=== PATIENT | male | born 1935 | race Caucasian/White ===

== ENCOUNTER 2018-02-06 08:31 | Outpatient (CLI) | payer MEDICARE, BC ==
--- NOTE | 2018-02-06 11:14 | CT ---
NONCONTRAST CT ABDOMEN AND PELVIS: Date: 02/06/18 HISTORY: Abnormality identified on x-ray. Irregular and coarse appearing calcifications upper quadrants of the abdomen bilaterally noted on views of lumbar spine. COMPARISON: Views of lumbar spine on 01/22/18. FINDINGS: The lung bases are clear. Vascular calcifications are seen in the abdominal aorta and involving the iliac arteries. There are coarse calcifications seen diffusely involving each adrenal gland. Findings may be related to either prior adrenal hemorrhages or infection/prior granulomatous disease, but no additional calci fied granulomata are seen to definitely suggest prior granulomatous disease. The liver, spleen, pancreas, and right kidney demonstrate a grossly normal nonenhanced CT appearance. A 2.3 cm hypodense lesion is seen in the superior pole of the left kidney which does demonstrate flui d attenuation on this nonenhanced CT exam and probably represents a renal cyst. No renal or ureteral calculus is visualized. The prostate gland is enlarged, measuring 7.6 cm in transverse dimension, and does result in mass eff ect on the posterior aspect of the urinary bladder. Urinary bladder otherwise demonstrates a grossly normal nonenhanced CT appearance. There is a small to moderate amount of retained fecal material seen throughout the colon. The small b owel is normal in caliber. The appendix is visualized and normal in caliber. IMPRESSION: 1. Diffuse coarse calcifications involving each adrenal gland, which may be attributable to either p rior adrenal hemorrhages or prior infection. 2. Left renal cyst. 3. Degenerative changes in the spine with mild left convex curvature of the thoracolumbar spine. POS: [facility]
== END 2018-02-06 08:32 | disposition home or self-care (01) ==
LOC: SCSCT 08:31
PROVIDERS: ATTEND Specialist
DX: N28.1 Cyst of kidney, acquired (principal); E27.9 Disorder of adrenal gland, unspecified; M47.895 Other spondylosis, thoracolumbar region
CPT/HCPCS: 74176

== ENCOUNTER 2019-06-02 06:35 | Emergency (ER) | payer MEDICARE, BC ==
[2019-06-02 06:55] LABS: Bilirubin Negative (Negative); Blood, Urine Negative (Negative); Clarity Clear (Clear); Glucose, Urine (Dipstick) Negative (Negative); Leukocyte Negative (Negative); Nitrite Negative (Negative); Protein, Urine (Dipstick) 30 mg/dL (Neg-Trace); Urobilinogen 0.2 mg/dL (Less than 2)
[2019-06-02 07:03] LABS: Bacteria/HPF None Seen HPF (None Seen); RBC/HPF 0-3 HPF (0-3); Squamous Epithelial 0-3 HPF (0-3); WBC/HPF 0-3 HPF (0-3)
[2019-06-02 07:04] LABS: Mucous/LPF Rare LPF (<2+)
== END 2019-06-02 07:45 | disposition home or self-care (01) ==
LOC: SCSER 06:35
DX: N39.490 Overflow incontinence (principal); R33.9 Retention of urine, unspecified; E78.5 Hyperlipidemia, unspecified; Z79.899 Other long term (current) drug therapy
CPT/HCPCS: 36416; 51702; 81003; 81015

== ENCOUNTER 2019-06-13 06:07 | Emergency (ER) | payer MEDICARE, BC ==
[2019-06-13 07:00] LABS: Bilirubin Negative (Negative); Blood, Urine Moderate (Negative); Clarity Clear (Clear); Glucose, Urine (Dipstick) Negative (Negative); Leukocyte Negative (Negative); Nitrite Negative (Negative); Protein, Urine (Dipstick) 30 mg/dL (Neg-Trace); Urobilinogen 0.2 mg/dL (Less than 2)
[2019-06-13 07:00] LABS: #Basophils 0.1 thou/uL (0.0-0.2); #Eosinphils 0.1 thou/uL (0.0-0.7); #Lymphocytes 0.6 thou/uL (1.20-3.40); #Monocytes 0.4 thou/uL (0.11-0.59); #Neutrophils 3.5 thou/uL (1.40-6.50); %Basophils 1.3 % (0.0-1.0); %Eosinophils 2.9 % (0.0-10.0); %Lymphocytes 11.8 % (21.0-51.0); %Monocytes 8.1 % (0.0-10.0); %Neutrophils 75.9 % (42.0-75.0); Hemoglobin 13.3 g/dL (14.0-18.0); Mean Corpuscular Hemoglobin 32.9 pg (27.0-31.0); Mean Corpuscular Volume 94.1 fL (78.0-98.0); Platelet Count 218 thou/uL (130-400); RBC Distribution Width 13.3 % (11.5-14.5); Red Blood Cell (RBC) Count 4.05 mill/uL (4.70-6.10); White Blood Cell (WBC) Count 4.6 thou/uL (4.8-10.8)
[2019-06-13 07:07] LABS: Bacteria/HPF None Seen HPF (None Seen); Squamous Epithelial 0-3 HPF (0-3); WBC/HPF 0-3 HPF (0-3)
[2019-06-13 07:08] LABS: Mucous/LPF 1+ LPF (<2+)
[2019-06-13 07:11] LABS: Anion Gap 14 mmol/L (10-20); BUN (Urea Nitrogen) 26 mg/dL (8.4-25.7); Calc. Creatinine Clearance 0 mL/min (70-130); Calcium 8.9 mg/dL (7.8-10.44); Carbon Dioxide 23 mmol/L (23-31); Chloride 107 mmol/L (98-107); Estimated GFR-MDRD 68; Glucose 102 mg/dL (83-110); Sodium 140 mmol/L (136-145)
== END 2019-06-13 07:45 | disposition home or self-care (01) ==
LOC: SCSER 06:07
DX: N40.1 Benign prostatic hyperplasia with lower urinary tract symptoms (principal); R33.8 Other retention of urine; E78.5 Hyperlipidemia, unspecified; Z79.899 Other long term (current) drug therapy
CPT/HCPCS: 51702; 80048; 81003; 81015; 85025; 93005; 93010

== ENCOUNTER 2019-06-13 08:45 | Outpatient (CLI) | payer MEDICARE, BC ==
[2019-06-13 10:32] LABS: Hemoglobin 13.4 g/dL (14.0-18.0); Mean Corpuscular Hemoglobin 32.7 pg (27.0-31.0); Mean Corpuscular Volume 96.2 fL (78.0-98.0); Mean Platelet Volume 7.7 fL (7.4-10.4); Platelet Count 228 thou/uL (130-400); White Blood Cell (WBC) Count 6.1 thou/uL (4.8-10.8)
[2019-06-13 10:59] LABS: Anion Gap 11 mmol/L (10-20); BUN (Urea Nitrogen) 22 mg/dL (8.4-25.7); Calc. Creatinine Clearance 0 mL/min (70-130); Calcium 9.3 mg/dL (7.8-10.44); Carbon Dioxide 27 mmol/L (23-31); Chloride 103 mmol/L (98-107); Estimated GFR-MDRD 68; Glucose 103 mg/dL (83-110); Potassium 4.2 mmol/L (3.5-5.1); Sodium 137 mmol/L (136-145)
--- NOTE | 2019-06-16 17:14 | EKG ---
Test Reason : Blood Pressure : / mmHG Vent. Rate : 068 BPM Atrial Rate : 068 BPM P-R Int : 140 ms QRS Dur : 098 ms QT Int : 388 ms P-R-T Axes : 068 071 068 degrees QTc Int : 412 ms Normal sinus rhythm Normal ECG No previous ECGs available Confirmed by GAGANDEEP BOWERS (2) on 06/16/2019 5:13:53 PM Referred By: GRACE Confirmed By:GAGANDEEP BOWERS
== END 2019-06-13 08:46 | disposition home or self-care (01) ==
LOC: LABBT 08:45
PROVIDERS: ATTEND Urology
DX: Z01.818 Encounter for other preprocedural examination (principal); N40.1 Benign prostatic hyperplasia with lower urinary tract symptoms
CPT/HCPCS: 93005; 93010

== ENCOUNTER 2019-06-18 05:56 | Observation (INO) | payer MEDICARE, BC ==
[2019-06-13 09:43] VITALS: BMI 22.4
[2019-06-18] MEDS ORDERED: Levofloxacin 500 mg/D5W 100 ml Premix Bag ONE (06:57)
[2019-06-18] MEDS ORDERED: Fentanyl 100 MCG/2 ML VIAL ONE ×2 (07:57→11:52)
[2019-06-18] MEDS ORDERED: diphenhydrAMINE 50 MG/ML VIAL IVP PRN (08:29)
[2019-06-18] MEDS ORDERED: Ondansetron PF 4 MG/2 ML Vial IVP PRN (08:29)
[2019-06-18] MEDS ORDERED: Hyoscyamine Sulfate SL 0.125 mg Tablet SL PRN (08:29)
[2019-06-18] MEDS ORDERED: Ketorolac Tromethamine 30 MG/ML VIAL IVP PRN (08:29)
[2019-06-18] MEDS ORDERED: Acetaminophen 500 MG TAB PO PRN (08:29)
[2019-06-18] MEDS ORDERED: HYDROcodone/Acetaminophen 5/325 mg Tablet PO PRN (08:29)
[2019-06-18] MEDS ORDERED: Morphine 2 MG/ML SYRINGE SLOW IVP PRN (08:29)
[2019-06-18] MEDS ORDERED: Ondansetron HCl/PF 4 MG/2 ML Vial IVP PRN (11:32)
[2019-06-18] MEDS ORDERED: Promethazine HCl 25 MG/ML VIAL SLOW IVP PRN (11:32)
[2019-06-18] MEDS ORDERED: Meperidine HCl/PF 25 MG/ML VIAL SLOW IVP PRN (11:32)
[2019-06-18] MEDS ORDERED: Promethazine HCl 25 MG/ML VIAL IM PRN (11:32)
[2019-06-18] MEDS: Sodium Chloride 0.9% 1,000 ML IV SCH ×2 (13:26→23:27)
[2019-06-18] MEDS ORDERED: Ondansetron PF 4 MG/2 ML Vial ONE (15:28)
[2019-06-18] MEDS ORDERED: Lidocaine 1% PF 5 ML VIAL ONE (15:28)
[2019-06-18] MEDS ORDERED: PROPOFOL 200 MG/20 ML VIAL ONE (15:28)
[2019-06-18] MEDS ORDERED: ePHEDrine 50 MG/ML VIAL ONE (15:28)
[2019-06-18] MEDS ORDERED: PHENYLEPHRINE-NS 100 MCG/ML 10 ML SYRINGE ONE (15:28)
--- NOTE | 2019-06-18 16:42 | OP ---
DATE OF PROCEDURE: 06/18/2019 PREOPERATIVE DIAGNOSES: Enlarged prostate with lower urinary tract symptoms and urinary retention. POSTOPERATIVE DIAGNOSES: Enlarged prostate with lower urinary tract symptoms and urinary retention. PROCEDURE: Transurethral resection of the prostate-bipolar. ANESTHESIA: General. SPECIMEN: Prostate chips. COMPLICATIONS: None. FINDINGS: Very large prostate, likely 140 to 150 grams in total. BLOOD LOSS: 200 mL. DESCRIPTION OF PROCEDURE: After informed consent, the patient was taken to the operating room, transferred to the table on his own power. Anesthesia was established. A time-out was performed showing the correct patient, site, and procedure. Preoperative antibiotics were administered. He was then prepped and draped in a lithotomy position. The resectoscope was then carefully advanced through the urethra and into the bladder. The bladder was systematically examined noting severe trabeculation with multiple diverticula. There were no mucosal abnormalities. 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 There was no regrowth of the median lobe. I began by resecting the left lobe over the prostate starting at the anterior aspect continuing all the way down to the base. I was careful not to resect distal to the verumontanum. The same procedure was then repeated on the right side. Total resection time was about 1 hour and 15 minutes. I then used the Fabricly evacuator to retrieve the prostate chips, which was sent off as specimen. The bladder was re-examined, noting no injury to the ureteral orifices and no further prostate chips. Meticulous hemostasis was then achieved. The scope was then withdrawn, and a 22-Trinidadian 3-way catheter was placed with 45 mL instilled into the balloon. This was placed on gentle traction and CBI connected noting the urine running light pink on CBI. The patient was then awoken from anesthesia, transferred back to his hospital bed, and taken to PACU in stable condition, where he will be admitted to the floor overnight. Job ID: [id number]
[2019-06-18] MEDS ORDERED: FLU VACC TS2019-20(65YR UP)/PF 180 MCG/0.5 ML SYRINGE IM ONE (21:00)
[2019-06-18] MEDS ORDERED: Prevnar 13-Val Conj/PF 0.5 ML SYRINGE IM ONE (21:00)
[2019-06-19 11:21] VITALS: BP 97/58; TEMP 98.1
--- NOTE | 2019-06-20 10:51 | DIS ---
DATE OF ADMISSION: 06/18/2019 DATE OF DISCHARGE: 06/19/2019 CHIEF COMPLAINT: Urinary retention. FINAL DIAGNOSIS: Urinary retention, enlarged prostate with lower urinary tract symptoms. PROCEDURE PERFORMED: Bipolar transurethral resection of prostate. HOSPITAL COURSE: The patient underwent a bipolar transurethral resection of the prostate. There were no surgical complications. He was managed overnight with continuous bladder irrigation. The following morning, his urine was clear off CBI, so he was deemed stable for discharge home. POSTOPERATIVE MEDICATIONS: 1. Oxybutynin. 2. Tramadol. 3. Levaquin. 4. Ibuprofen. CONDITION AT DISCHARGE: Stable. PLAN: Followup next Monday for void trial. Job ID: [id number]
== END 2019-06-19 14:30 | disposition home or self-care (01) ==
LOC: SDC 05:56 → SURG B 08:29
PROVIDERS: ADMIT Urology; ATTEND Urology
PROC: 0VB08ZZ Excision of Prostate, Via Natural or Artificial Opening Endoscopic (ICD-10-PCS; principal; 2019-06-18)
DX: N40.1 Benign prostatic hyperplasia with lower urinary tract symptoms (principal); R33.8 Other retention of urine; N41.1 Chronic prostatitis; M19.90 Unspecified osteoarthritis, unspecified site; C91.40 Hairy cell leukemia not having achieved remission; Z79.899 Other long term (current) drug therapy
CPT/HCPCS: 52601; 88305; 90670; 96360; 96361; G0009; G0378 ×2; 90471; J1956; J2001; J2405; J2704; J3010; J3490